=== PATIENT | male | born 1970 | race Caucasian/White ===

== ENCOUNTER 2020-08-08 08:08 | Emergency (ER) | payer OTHER, SELFPAY ==
--- NOTE | ~2020-08-08 | XR_ITS ---
EXAMINATION: XR shoulder RT min 2V EXAM DATE: 08/08/2020 08:47 INDICATION: Injury, right shoulder pain, initial encounter. TECHNIQUE: The following right shoulder projections obtained: frontal projection with internal rotati on, frontal projection with external rotation, Grashey, and scapular Y view (4+ views). There is no prior study for comparison. FINDINGS: There are no acute right shoulder fractures or dislocations identified. There is no subcut aneous gas. Small region of calcific tendinosis adjacent to the greater tuberosity. There is mild acr omioclavicular joint primary osteoarthritis. There are no radiopaque foreign bodies. IMPRESSION: 1. Right shoulder exam without acute osseous findings. 2. Acromioclavicular mild osteoarthritis. 3. Probable calcific tendinosis. Reviewed, dictated and finalized at location [facility]
[2020-08-08 08:28] VITALS: BP 144/82; PULSE 100; RESP 20; TEMP 36.9; O2SAT 99
--- NOTE | 2020-08-08 09:05 | ED.UPPEXIN ---
HPI - Extremity Injury (Upper) General Chief Complaint: Extremity Injury, Upper Stated Complaint: Extremity Injury, Upper Time Seen by Provider: 08/08/20 08:55 Source: patient Mode of arrival: ambulatory Limitations: no limitations History of Present Illness HPI narrative: Jin Whitman is a 49 yo male with no PMH who pulled arm when taking down steel at work. Right arm pain along shoulder AC joint that he rates as a 3 and also elbow on the posterior side along the ulnar nerve that he rates as a 2 No prior injury to the right arm Related Data Allergies Allergy/AdvReac Type Severity Reaction Status Date / Time No Known Allergies Allergy Verified 08/08/20 08:37 Review of Systems Review of Systems: Narrative: CONSTITUTIONAL: Denies fever, chills, sweats. EYES: Denies visual changes, redness, discharge. ENT: Denies rhinorrhea, congestion, sore throat, otalgia. CARDIOVASCULAR: Denies chest pain, palpitations, edema. RESPIRATORY: Denies dyspnea, wheezing, cough GASTROINTESTINAL: Denies abdominal pain, nausea, vomiting, diarrhea. GENITOURINARY: Denies dysuria, hematuria, abnormal discharge SKIN: Denies rash or itching. NEUROLOGIC: Denies numbness, or focal weakness. PSYCHIATRIC: Denies anxiety or depression. Right arm and shoulder pain PMFSH Past Medical History Medical History No acute medical problems Family History Family History Other High cholesterol Social History Social History (Updated 08/08/20 @ 09:09 by Anusha Mendoza CNP) Smoking status: Former smoker Tobacco type: cigarettes Alcohol intake: current Comments At time of signature, I agree with nursing past medical, surgical, social and family history. There is no relevant family history pertinent to the presenting complaint. Patient has high blood pressure here in office discussed with patient will follow-up with primary care physician Exam Narrative: Exam Narrative: GENERAL: This is a well-nourished, well-developed patient, in mild distress. HEAD: normocephalic, atraumatic. EYES: Sclera clear/white. Vision is grossly intact. EARS: External ears normal,. Hearing grossly intact. NOSE: External nose normal without nasal discharge, nares without redness, no rhinorrhea. THROAT: Mucous membranes moist, NECK: Neck supple, non-tender, mild tightness base of neck on right CARDIOVASCULAR: Regular rate and rhythm without murmurs, gallops, or rubs. RESPIRATORY: Clear to auscultation. Breath sounds equal bilaterally. No wheezes, rales, or rhonchi. GASTROINTESTINAL: Abdomen soft, SKIN: warm, intact with no suspicious lesions or rash, good texture and turgor. NEURO: awake, alert, and oriented to person, place and time. There were no obvious focal neurologic abnormalities. Steady gait EXTREMITIES: Normal range of motion. Pain in the AC joint posterior side and along the posterior part of olecranon around the area where ulnar nerve inserts, no swelling, no erythema, BACK: Nontender without deformity Course Course Emergency Course: Came after injury at work from pulling on steel from above his head X-ray shows no acute injury has mild osteoarthritis and tendinosis Given sling and started on high-dose ibuprofen and baclofen Vital Signs Vital signs: Vital Signs Temperature 98.4 F 08/08/20 08:28 Pulse Rate 100 08/08/20 08:28 Respiratory Rate 20 08/08/20 08:28 Blood Pressure 144/82 H 08/08/20 08:28 Pulse Oximetry 99 08/08/20 08:28 Temperature 98.4 F 08/08/20 08:28 Pulse Rate 100 08/08/20 08:28 Respiratory Rate 20 08/08/20 08:28 Blood Pressure 144/82 H 08/08/20 08:28 Pulse Oximetry 99 08/08/20 08:28 MDM - Extremity Injury (Upper) Differential Diagnosis Differential diagnosis: Likely dislocation of shoulder, fracture of humerus, fracture of clavicle and other (AC joint injury) Discharge Plan Discha
== END 2020-08-08 09:18 | disposition home or self-care (01) ==
PROVIDERS: Emergency Provider Nurse Practitioner
DX: S49.91XA Unspecified injury of right shoulder and upper arm, initial encounter (principal); X50.0XXA Overexertion from strenuous movement or load, initial encounter; Y99.0 Civilian activity done for income or pay; Z87.891 Personal history of nicotine dependence
CPT/HCPCS: 73030; 99203; A4565; G0463